=== PATIENT | female | born 1940 | race Caucasian/White ===

== ENCOUNTER 2017-08-13 08:08 | Day surgery (SDC) | payer MEDICARE, BC ==
[~2017-08-13] VITALS: Ht 170.2 cm; Wt 108.9 kg
[~2017-08-13 08:08] MED LIST: ADVIL PM1 CAP; ADVIL200 MG; ALENDRONATE70 MG PO; ASPIRIN81 MG; ATORVASTATIN CA20 MG PO; AZELASTINE0.1 %; BACTRIM DS1 TAB PO; BENICAR20 MG; BENZONATATE200 MG PO; CALCIUM CITRATE1 TAB PO; CALTRATE 600; COQ10200 MG PO; DEXILANT60 MG; EVISTA60 MG; FLEXERIL10 MG PO; GARLIC1000 MG PO; GLUCO/CHOND; GLUCOSAMINE CHO1 CA3 PO; HYDROCO/APAP1 T10 PO; HYDROCO/APAP1 TA9 PO; KEFLEX500 MG PO; LYRICA100 MG PO; MAGNEBIND200 MG PO; MAGNESIUM 250 M1 TAB PO; MEDDOSEPAK PO; MELOXICAM15 MG PO; METAMUCIL28 % OR; MUCINEX600 MG PO; MULTI 501; NASONEX50 MCG/AC; NASONEX50 MCG/ACT; OSTEO BI-FLE OR; OXYCODONE HCL5 MG PO; PROBIOTIC DAILY1 CAP PO; SIMVASTATIN40 MG; TIZANIDINE HCL4 M1 PO; TOBRAMYCIN0.3 % OD; TRAMADOL HCL50 MG PO; TRIAM/NYSTAT EX; TRIAMCINOLON0.13 EX; TYLENOL PM PO; TYLENOL325 MG PO; VITA D-1000; VITAMIN D-32000 UNIT PO; VITAMIN D2000 UNI1 PO; [UNRECOGNIZED DRUG - OTHER]
[2017-08-13] MEDS ORDERED: PERCOCET 5/325M1 TAB PO (10:57)
[2017-08-13 12:22] VITALS: BP 126/78
== END 2017-08-13 13:15 | disposition home or self-care (01) ==
LOC: ORM 08:08
PROVIDERS: ATTEND Surgery
PROC: 06BY0ZC Excision of Hemorrhoidal Plexus, Open Approach (ICD-10-PCS; principal; 2017-08-13)
DX: K64.2 Third degree hemorrhoids (principal); K64.4 Residual hemorrhoidal skin tags; K21.9 Gastro-esophageal reflux disease without esophagitis; Z85.42 Personal history of malignant neoplasm of other parts of uterus

== ENCOUNTER 2017-10-25 10:07 | Day surgery (SDC) | payer MEDICARE, BC ==
[~2017-10-25] VITALS: Ht 170.2 cm; Wt 104.3 kg
[~2017-10-25 10:07] MED LIST changes: +PERCOCET 5/325M1 TAB PO
[2017-10-25 12:43] VITALS: BP 124/67
== END 2017-10-25 12:50 | disposition home or self-care (01) ==
LOC: ENDO 10:07
PROVIDERS: ATTEND Internal Medicine Gastroenterology
PROC: 0DBP8ZX Excision of Rectum, Via Natural or Artificial Opening Endoscopic, Diagnostic (ICD-10-PCS; principal; 2017-10-25)
PROC: 0DBE8ZX Excision of Large Intestine, Via Natural or Artificial Opening Endoscopic, Diagnostic (ICD-10-PCS; 2017-10-25)
PROC: 0DBL8ZX Excision of Transverse Colon, Via Natural or Artificial Opening Endoscopic, Diagnostic (ICD-10-PCS; 2017-10-25)
PROC: 0DBN8ZX Excision of Sigmoid Colon, Via Natural or Artificial Opening Endoscopic, Diagnostic (ICD-10-PCS; 2017-10-25)
DX: R19.7 Diarrhea, unspecified (principal); K57.31 Diverticulosis of large intestine without perforation or abscess with bleeding; D12.3 Benign neoplasm of transverse colon; K62.1 Rectal polyp; K64.4 Residual hemorrhoidal skin tags; K64.8 Other hemorrhoids; K21.9 Gastro-esophageal reflux disease without esophagitis; E78.00 Pure hypercholesterolemia, unspecified; Z86.010 Personal history of colon polyps; Z80.0 Family history of malignant neoplasm of digestive organs

== ENCOUNTER → 2018-10-21 | Outpatient (REF) | payer MEDICARE, BC ==
[2018-10-21 08:13] LABS: HEMATOCRIT 44.5 % (37.0-47.0); HEMOGLOBIN 14.5 g/dl (12.0-16.0); IMMATURE GRANULOCYTES 0.5 % (0.0-5.0); MEAN CELL VOLUME 89.4 fL CALC (80.0-100.0); MEAN CORPUSCULAR HGB 29.1 pG CALC (26.0-32.0); MEAN CORPUSCULAR HGB CONC 32.6 g/L CALC (32.0-36.0); NEUT# 4.19 thou/uL (2.00-7.15); RED BLOOD COUNT 4.98 mill/uL (4.20-5.60); RED CELL DISTRI WIDTH 12.6 % (11.5-15.5)
[2018-10-21 08:37] LABS: ALBUMIN 4.5 g/dL (3.2-5.0); ALKALINE PHOSPHATASE 57 u/l (38-126); ANION GAP 14 (6-22 (CALC)); BILIRUBIN, TOTAL 0.6 mg/dL (0.0-1.4); BUN 16 mg/dL (8-23); BUN/CREATININE RATIO 17 (12-20 (CALC)); CALCULATED LDLCHOLESTEROL 107 mg/dL (62-129 (CALC)); CARBON DIOXIDE 28 mmol/l (22-30); CHLORIDE 104 mmol/l (95-108); CHOLESTEROL HDL RATIO 2.9 (<4.4 (CALC)); GFR 54 ML/MIN (>=60 (CALC)); GFR FOR AFR.AMER. > 60 ML/MIN (>=60 (CALC)); HDL CHOLESTEROL 71 mg/dL (>=40); POTASSIUM 4.4 mmol/l (3.5-5.1); SGOT/AST 18 u/l (9-36); SODIUM 142 mmol/l (137-146); TOTAL CHOLESTEROL 205 mg/dl (0-199); TOTAL PROTEIN 6.8 g/dL (6.3-8.2); TOTAL TRIGLYCERIDES 137 mg/dl (30-149); VLDL CHOLESTROL 27 mg/dl (0-48 (CALC))
[2018-10-21 09:00] LABS: TSH, 3RD GENERATION 2.65 uIU/mL (0.47 - 4.68)
== END | disposition home or self-care (01) ==
LOC: LAB 07:23
PROVIDERS: ATTEND Nurse Practitioner Adult Health
DX: I10 Essential (primary) hypertension (principal); E78.49 Other hyperlipidemia